=== PATIENT | male | born 1975 | race Caucasian/White ===

== ENCOUNTER 2020-09-28 18:15 | Inpatient (IN) | payer OTHER, SELFPAY ==
--- NOTE | ~2020-09-28 | CT_ITS ---
EXAMINATION: CT abdomen pelvis wo con DATE: 09/29/2020 01:45 INDICATION: Abdomen pain. Vomiting. TECHNIQUE: Computed tomography (CT) of the abdomen and pelvis was performed without intravenous contr ast. The dose-length product was 243.55 mGy-cm. Automated exposure control and iterative reconstructi on technique were employed. COMPARISON: None. FINDINGS: There is right lower lobe atelectasis/scarring. Heart size normal. No significant pleural o r pericardial effusion. There is severe atrophy of the [place] kidneys. There is a right iliac fossa r enal transplant. No hydronephrosis. Surgical anastomosis and bowel of the right mid abdomen. Bladder is unremarkable. The liver, spleen, pancreas, adrenal glands are unremarkable. Gallbladder is not identified, likely s urgically absent. No abnormal pelvic masses or fluid collections. No acute osseous abnormality. There are small ventral hernias containing fat. IMPRESSION: 1. Right lower lobe atelectasis/scarring. 2: Atrophic [place] kidneys with transplant kidney in the right iliac fossa. No hydronephrosis. Reviewed, dictated and finalized at location A. DING CONSTRUCTION SUPERINTENDENT
--- NOTE | ~2020-09-28 | XR_ITS ---
EXAMINATION: XR abdomen obstructive series EXAM DATE: 09/28/2020 22:11 INDICATION: N/V, h/o cyclic vomiting, kidney/pancreas transplant, CKD. TECHNIQUE: Frontal upright projection of the upper abdomen, frontal projection of the lower abdomen f or interpretation. There is no prior study for comparison. FINDINGS: There is right-sided abdominal bowel anastomosis material. No other device overlying right abdomen. There is expected amount of colonic stool and gas. No small bowel dilation, nonobstructiv e bowel gas pattern. There are no suspicious calcifications identified. There is no organomegaly suspected. The bones are unremarkable. There is no free intraperitoneal air. The lung bases are clear. IMPRESSION: Unremarkable abdomen x-ray exam. Reviewed, dictated and finalized at location G. ESS VALIDATION ENGINEER
[2020-09-28 18:15] VITALS: BP 175/94; PULSE 102; RESP 24; TEMP 37.4; O2SAT 98; BMI 22.1
[2020-09-28 18:44] VITALS: BP 175/94; PULSE 102; RESP 24; TEMP 37.4; O2SAT 98
--- NOTE | 2020-09-28 19:03 | ADMGEN ---
This patient, Frandy Chavez, was admitted to 2nd Floor Room 210-2. Patient/family oriented to hospital policies and general routines including ID bracelet, bed and alarms, visiting hours, pain management, procedures, bathroom and other care routines, personal items, smoking policy, room service/diet, and visiting hours. Information on how to activate the Rapid Response Team has been discussed. Patient/Family are encouraged to report perceived risks to care and to ask questions if they do not understand what they are told or what they should do. Patient arrived to floor via ambulance at 1815. Patient ambulated from stretcher to bed. Alert and orientated x4. Patient voided 800 in urinal. States pain in stomach is 9/10. Wants dilauded for pain. No orders yet. Right upper chest port accessed. Left arm shunt, good. Incision well approximated, intact.
[2020-09-28 20:24] LABS: SARS-CoV-2 Ag Negative (Negative)
[2020-09-28 20:33] VITALS: BP 152/103; PULSE 88; RESP 18; TEMP 37.2; O2SAT 98
[2020-09-28 21:05] LABS: Anion Gap 6 mmol/L (8-16); Blood Urea Nitrogen 20 mg/dL (7-18); Calcium 8.5 mg/dL (8.5-10.1); Carbon Dioxide 28 mmol/L (21-32); Chloride 102 mmol/L (98-108); Estimated CRCL calculation 33 ml/min; Estimated Glomerular Filt Rate 27; Glucose 150 mg/dL (70-99); Magnesium 1.9 mg/dL (1.8-2.4); Osmolality Calculated 287 mOsm/kg (285-295); Potassium 3.6 mmol/L (3.5-5.1); Sodium 136 mmol/L (136-145)
[2020-09-28 21:10] LABS: Amphetamine Screen Urine Negative (Negative); Barbiturate Screen Urine Negative (Negative); Benzodiazepines Screen Urine Negative (Negative); Cannabinoid Screen Urine Positive (Negative); Cocaine Screen Urine Negative (Negative); Methadone Screen Urine Negative (Negative); Opiate Screen Urine Positive (Negative); Phencyclidine Screen Urine Negative (Negative)
--- NOTE | 2020-09-28 21:20 | PM.IMHP ---
H&P: HPI History of Present Illness Date/Time: 09/28/201914 Chief Complaint: Vomiting Narrative: 45-year-old man with a history of type 2 diabetes, gastroschisis, pancreas kidney transplant 2008 and cyclic vomiting syndrome transferred from [facility] for inpatient through treatment of his persistent vomiting. Patient began having vomiting on 09/22 and has been unable to keep down medicines and adequate fluid since. Patient states that he has been to multiple emergency departments there he gets fluids and medications however he has not had any relief. Patient states he has also been having epigastric pain which is not unusual for him during his episodes. He states his vomiting episodes have recurred and is little as a month but he has also had intervals of 1 year where he had no symptoms. He denies having fever, cough, shortness of breath, chest pain, back pain, dysuria, hematuria, blood in his stools or melena. He states there is occasionally some blood in his vomitus as there was a small amount today. He states that he is a sometimes marijuana smoker but has not smoked for 3 weeks. He states he has been able to keep down his immunosuppressant medications, tacrolimus and prednisone. Review of Systems Constitutional: Constitutional: Denies body ache(s), Denies chills, Denies fatigue, Denies fever(s), Denies headache(s) and Reports weakness Eyes: Eyes: Denies blurry vision and Denies diplopia ENT: Denies otalgia, Denies nasal congestion, Denies odynophagia, Reports sore throat ( After vomiting) and Denies throat swelling Cardiovascular: Cardiovascular: Denies chest pain and Denies edema Respiratory: Respiratory: Denies cough, Denies hemoptysis and Denies dyspnea Gastrointestinal: Gastrointestinal: Reports abdominal pain, Denies melena, Denies hematochezia, Denies coffee ground emesis, Denies diarrhea, Reports nausea, Reports vomiting and Reports hematemesis Genitourinary: Genitourinary: Denies hematuria and Denies dysuria Musculoskeletal: Musculoskeletal: Denies back pain, Denies arthralgias and Denies joint swelling Integumentary/Breasts: Skin/Breast: Denies erythema and Denies rash Neurologic: Denies headache(s) and Denies focal weakness Hematologic/Lymphatic: Hematologic/Lymphatic: Denies easy bleeding and Denies easy bruising Allergic/Immunologic: Allergic/Immunologic: Denies urticaria, Denies lip swelling and Denies throat swelling PMFSH Past Medical History Medical History Chronic pancreatitis Chronic renal failure Cyclic vomiting syndrome Gastroparesis due to DM Hypertension Presence of arteriovenous dialysis shunt Type 1 diabetes mellitus Surgical History Surgical History H/O skin graft History of simultaneous kidney and pancreas transplant Renal transplant recipient Social History Social History Smoking status: Former smoker Tobacco type: cigarettes Alcohol intake: never Substance use: current Substance use type: marijuana Living arrangements: with family Gender identity (if verbalized by the patient): Male Sexual Orientation (if Verbalized by the Patient): Straight or Heterosexual Spiritual care concerns: No Meds Home Medications and Allergies Home Medications Medication Instructions Recorded Confirmed Type aspirin [Aspirin Low-Strength] 81 mg PO DAILY 09/28/20 09/28/20 History carvedilol 6.25 mg PO BID 09/28/20 09/28/20 History cholecalciferol (vitamin D3) 1,000 units BYMOUTH DAILY 09/28/20 09/28/20 History hydrocodone-acetaminophen 1 tablet PO Q6H PRN 09/28/20 09/28/20 History insulin aspart U-100 [Novolog 100 unit SUBCUT DAILY 09/28/20 09/28/20 History U-100 Insulin aspart] insulin lispro See Rx Instructions .ROUTE .COMPLEX 09/28/20 09/28/20 History metoclopramide HCl 10 mg PO QID
[2020-09-28] MEDS: DEXTROSE 5%/0.9% SOD CHL 1,000 ML 125 ML IV CONT (21:21)
[2020-09-28] MEDS: HYDROmorphone HCL INJ (*CRX) 2 MG/ML VIAL 0.5 MG IV PUSH (21:26)
[2020-09-28] MEDS: PANTOPRAZOLE SODIUM IV 40 MG VIAL IV PUSH (21:29)
[2020-09-28] MEDS: METOCLOPRAMIDE HCL INJ 10 MG/2 ML VIAL IV PUSH (21:47)
[2020-09-28 22:00] VITALS: BP 152/103; PULSE 88; RESP 20; TEMP 37.2; O2SAT 98
--- NOTE | 2020-09-28 22:07 | PC.NURSE ---
dr called at pt's request (after returning from obstructive series in xray) to ask for advancing dose of dilaudid, pt states the stuff we are giving him is not touching his pain, dr declines at this time because pt has only received one dose and will reevaluate after second dose
--- NOTE | 2020-09-28 22:19 | PC.NURSE ---
pt is unhappy, requests dr come up to speak to him, agrees and will be up when available
--- NOTE | 2020-09-28 22:30 | PC.NURSE ---
pt calls asking for tacrolimus medication, medication is not on mar, will consult with
--- NOTE | 2020-09-28 22:38 | PC.NURSE ---
pt requests amfany papers, dr valera and will be up to speak with him once he receives a callback from [facility]
--- NOTE | 2020-09-28 22:42 | PC.NURSE ---
Patient has a history of kidney and pancreas transplant 2008. Patient states he has a long history of gastroparesis and has seen multiple physicians for this condition. Patient states his pain level is a 9/10. Dilaudid IV given.
--- NOTE | 2020-09-28 22:55 | PC.NURSE ---
dr sapp is in room to speak with pt
--- NOTE | 2020-09-28 23:46 | PC.NURSE ---
2310-Patient called requesting his home medication. Explained to patient Dr was coming up to speak with him regarding medication and pt signing himself out. Pt extremely angry and verbally abusing, cursing at nurse. Attempted to calm patient explaining our understanding of his frustration but needing orders before nursing could give him anything. Pt then ordered nurse to leave his room.
--- NOTE | 2020-09-28 23:48 | PC.NURSE ---
8097- Dr. Pugh here speaking with patient. New orders recieved and noted.
--- NOTE | 2020-09-28 23:49 | PC.NURSE ---
Home med of Tacrolimus 2 mg given as ordered per Dr. Pugh. Pt continues to be verbally abusive regarding care and hospital in general.
--- NOTE | 2020-09-29 00:29 | PC.NURSE ---
[facility] called to clarify medication orders.
[2020-09-29] MEDS: HYDROmorphone HCL INJ (*CRX) 2 MG/ML VIAL 0.5 MG IV PUSH ×2 (00:38→01:39)
--- NOTE | 2020-09-29 00:39 | PC.NURSE ---
Dr. Pugh called to clarify medication orders; New orders received and noted.
[2020-09-29 00:40] VITALS: PULSE 84
[2020-09-29] MEDS: carvediloL 6.25 MG TABLET PO ×2 (00:40→10:10)
--- NOTE | 2020-09-29 00:57 | PC.NURSE ---
0030-Pt calmer at present. States Still having pain. Pain medication given as ordered. Remain dis satisfied with dose of medication. Notified.
--- NOTE | 2020-09-29 01:56 | PC.NURSE ---
0130- To CT scan per w/c
[2020-09-29] MEDS: HYDROmorphone HCL INJ (*CRX) 2 MG/ML VIAL 1 MG IV PUSH ×3 (03:33→10:12)
[2020-09-29] MEDS: METOCLOPRAMIDE HCL INJ 10 MG/2 ML VIAL IV PUSH (03:42)
[2020-09-29] MEDS: DEXTROSE 5%/0.9% SOD CHL 1,000 ML 125 ML IV CONT (05:06)
[2020-09-29 05:18] VITALS: BP 172/86; PULSE 96; RESP 24; TEMP 37.2; O2SAT 99
[2020-09-29 05:40] LABS: Basophils Absolute Auto 0.06 K/mm3 (0.00-0.10); Basophils Percent Auto 0.8 % (0.0-1.0); Eosinophils Absolute Auto 0.28 K/mm3 (0.02-0.50); Eosinophils Percent Auto 3.6 % (1.0-6.0); Hematocrit 28.7 % (40.0-54.0); Hemoglobin 9.6 g/dL (14.0-18.0); Immature Granulocyte Absolute 0.05 K/mm3 (0.00-0.00); Immature Granulocyte Percent A 0.6 % (0.0-0.0); Lymphocytes Absolute Auto 2.19 K/mm3 (1.10-4.50); Lymphocytes Percent Auto 28.4 % (18.0-42.0); Mean Corpuscular HGB Conc 33.4 g/dL (32.0-36.0); Mean Corpuscular Hemoglobin 30.3 pg (27.0-31.0); Mean Corpuscular Volume 90.5 fL (78.0-102.0); Monocytes Percent Auto 10.4 % (2.0-11.0); Neutrophils Absolute Auto 4.3 K/mm3 (1.7-7.2); Neutrophils Percent Auto 56.2 % (50.0-70.0); Platelet Count Result 278 K/mm3 (150-420); Red Blood Count 3.17 M/mm3 (4.70-6.10); Red Cell Distribution Width 12.4 % (11.6-14.4); White Blood Count 7.7 K/mm3 (4.8-10.8)
[2020-09-29 05:59] LABS: Alanine Aminotransferase 10 U/L (16-63); Albumin Level 2.8 g/dL (3.4-5.0); Alkaline Phosphatase 52 U/L (46-116); Anion Gap 6 mmol/L (8-16); Aspartate Amino Transferase 14 U/L (15-37); Bilirubin,Total 0.4 mg/dL (0.00-1.00); Blood Urea Nitrogen 16 mg/dL (7-18); Calcium 8.3 mg/dL (8.5-10.1); Carbon Dioxide 28 mmol/L (21-32); Chloride 103 mmol/L (98-108); Estimated CRCL calculation 33 ml/min; Estimated Glomerular Filt Rate 27; Glucose 120 mg/dL (70-99); Magnesium 1.7 mg/dL (1.8-2.4); Osmolality Calculated 286 mOsm/kg (285-295); Potassium 3.1 mmol/L (3.5-5.1); Sodium 137 mmol/L (136-145); Total Protein 5.7 g/dL (6.4-8.2)
[2020-09-29 06:05] LABS: Hemoglobin A1C 7.4 % (<5.7)
[2020-09-29 06:07] LABS: Acetone Negative (Negative)
[2020-09-29 08:21] VITALS: BP 165/97; PULSE 85; RESP 18; TEMP 36.7; O2SAT 95
--- NOTE | 2020-09-29 09:30 | PC.NURSE ---
Hospitalist speaking with patients primary care doctor Dr Scruggs
--- NOTE | 2020-09-29 09:55 | PM.IMHP ---
H&P: HPI History of Present Illness Date/Time: 09/29/20 09:55 Narrative: Frandy Chavez is a 45 year old male who is a direct admit from an outside hospital for abdominal pain and cyclic vomiting syndrome. I was able to talk with his primary care provider, Dr. Scruggs, who informed me that this patient also has very bad gastroparesis, chronic pancreatitis, and goes to a clinic every other day to get 500 cc normal saline for dehydration. Patient has also had renal transplants, type 1 diabetes with insulin pump, hypertension, recently placed dialysis shunt left arm. Patient has been going through abdominal issues for least the past [address] Scruggs. And from that conversation my understanding is patient uses marijuana for his nausea. At this time patient states his pain is epigastric without radiation. His pain has been difficult to control. Review of Systems Constitutional: Constitutional: Denies fever(s) and Reports poor appetite (unable to eat d/t N/V) Cardiovascular: Cardiovascular: Denies chest pain, Denies chest pain at rest and Denies chest pain with activity Respiratory: Respiratory: Denies dyspnea and Denies dyspnea on exertion Gastrointestinal: Gastrointestinal: Reports abdominal pain (epigastric) and Reports nausea PMFSH Past Medical History Medical History (Updated 09/29/20 @ 10:29 by ROMINA Parnell) Chronic pancreatitis Chronic renal failure Cyclic vomiting syndrome Gastroparesis due to DM Hypertension Presence of arteriovenous dialysis shunt Type 1 diabetes mellitus Surgical History Surgical History H/O skin graft History of simultaneous kidney and pancreas transplant Renal transplant recipient Social History Social History Smoking status: Former smoker Tobacco type: cigarettes Alcohol intake: never Substance use: current Substance use type: marijuana Living arrangements: with family Gender identity (if verbalized by the patient): Male Sexual Orientation (if Verbalized by the Patient): Straight or Heterosexual Spiritual care concerns: No Meds Home Medications and Allergies Home Medications Medication Instructions Recorded Confirmed Type aspirin [Aspirin Low-Strength] 81 mg PO DAILY 09/28/20 09/28/20 History carvedilol 6.25 mg PO BID 09/28/20 09/28/20 History cholecalciferol (vitamin D3) 1,000 units BYMOUTH DAILY 09/28/20 09/28/20 History hydrocodone-acetaminophen 1 tablet PO Q6H PRN 09/28/20 09/28/20 History insulin aspart U-100 [Novolog 100 unit SUBCUT DAILY 09/28/20 09/28/20 History U-100 Insulin aspart] insulin lispro See Rx Instructions .ROUTE .COMPLEX 09/28/20 09/28/20 History metoclopramide HCl 10 mg PO QID 09/28/20 09/28/20 History omeprazole 20 mg PO BID 09/28/20 09/28/20 History ondansetron 4 mg Q8H PRN 09/28/20 09/28/20 History prednisone 5 mg PO DAILY 09/28/20 09/28/20 History promethazine 25 mg IM PRN PRN 09/28/20 09/28/20 History tacrolimus 2 mg PO BID 09/28/20 09/28/20 History Allergies Allergy/AdvReac Type Severity Reaction Status Date / Time fentanyl Allergy Unknown Unknown Verified 09/28/20 20:43 haloperidol [From Haldol] Allergy Unknown Unknown Verified 09/28/20 20:43 ibuprofen Allergy Unknown Unknown Verified 09/28/20 20:43 ketorolac [From Toradol] Allergy Unknown Unknown Verified 09/28/20 20:43 metformin Allergy Unknown Unknown Verified 09/28/20 20:43 morphine Allergy Unknown Unknown Verified 09/28/20 20:43 prochlorperazine Allergy Unknown Unknown Verified 09/28/20 20:43 [From Compazine] Vital Signs Vital Signs - 24 hr 09/28/20 18:15 09/28/20 18:44 09/28/20 20:33 Temperature 99.3 F 99.3 F 99.0 F Pulse Rate 102 H 102 H 88 Respiratory Rate 24 H 24 H 18 Blood Pressure 175/94 H 175/94 H 152/103 H Pulse Oximetry 98 98 98 09/28/20 22:00 09/29/20 00:40 09/29/20 05:18 Temperature 99.0 F 99 F Puls
[2020-09-29] MEDS: CHOLECALCIFEROL 1,000 UNITS TABLET 1000 UNITS PO (10:09)
[2020-09-29 10:10] VITALS: PULSE 85
[2020-09-29] MEDS: predniSONE 5 MG TABLET PO (10:10)
[2020-09-29] MEDS: ASPIRIN 81 MG CHEWABLE TABLET PO (10:10)
[2020-09-29] MEDS: PROMETHAZINE HCL 25 MG/ML AMPUL IM (10:11)
[2020-09-29] MEDS: PANTOPRAZOLE SODIUM IV 40 MG VIAL IV PUSH (10:14)
[2020-09-29] MEDS: ENOXAPARIN 30 MG/0.3 ML SYRINGE SUB-Q (10:30)
--- NOTE | 2020-09-29 10:35 | PC.NURSE ---
Patient given 2 Tacrolimus 1mg capsules from home bottle. Patient states that the bottle states to take 3 but he only takes 2.
--- NOTE | 2020-09-29 10:46 | PM.IMPN ---
Progress Note: A&P Assessment and Plan (1) Gastroparesis due to DM: Code(s): E11.43 - Type 2 diabetes mellitus with diabetic autonomic (poly)neuropathy; K31.84 - Gastroparesis Status: Acute Assessment and Plan: 09/29/2020 IV Reglan, Pain management as outlined below, monitoring glucose (2) Abdominal pain: Code(s): R10.9 - Unspecified abdominal pain Status: Acute Assessment and Plan: 09/29/2020 likely due to chronic pancreatitis, cyclic vomiting, and severe gastroparesis, pain management with Dilaudid 1 mg Q2 hours as needed, offered patient PO OxyContin which he refused, IV fluids D5 normal saline, Reglan 10 mg scheduled 3 times a day (3) Chronic renal failure: Code(s): N18.9 - Chronic kidney disease, unspecified Status: Acute Assessment and Plan: 09/29/2020 patient has a left dialysis fistula placement in the recent past and per the patient this was in anticipation of starting dialysis given his kidney function (4) Cyclic vomiting syndrome: Code(s): R11.15 - Cyclical vomiting syndrome unrelated to migraine Status: Acute Assessment and Plan: 09/29/2020 Reglan as noted above, Zofran, IV fluids, clear liquids as tolerated (5) Hypertension: Code(s): I10 - Essential (primary) hypertension Status: Acute Assessment and Plan: 09/29/2020 hypertension likely due to chronic renal failure and abdominal pain, continue Coreg (6) Type 1 diabetes mellitus: Code(s): E10.9 - Type 1 diabetes mellitus without complications Status: Acute Assessment and Plan: 09/29/2020 patient has insulin pump in place, ACHS Accu-Cheks, patient not eating but does have IV fluids with D5 normal saline and clear liquid diet when patient is able to tolerate (7) Person under investigation for COVID-19: Code(s): Z20.822 - Contact with and (suspected) exposure to COVID-19 Status: Acute Assessment and Plan: 09/29/2020 rapid COVID was negative awaiting SARs COVID results, patient does not have any symptoms at this time Subjective Date/time seen: 09/29/20 10:46 Frandy Chavez is a 45 year old male who is a direct admit from an outside hospital for abdominal pain and cyclic vomiting syndrome. I was able to talk with his primary care provider, Dr. cSruggs, who informed me that this patient also has very bad gastroparesis, chronic pancreatitis, and goes to a clinic every other day to get 500 cc normal saline for dehydration. Patient has also had renal transplants, type 1 diabetes with insulin pump, hypertension, recently placed dialysis shunt left arm. Patient has been going through abdominal issues for least the past [address] Scruggs. And from that conversation my understanding is patient uses marijuana for his nausea. At this time patient states his pain is epigastric without radiation. His pain has been difficult to control. Patient refuses oral medication likely due to his epigastric pain. Review of Systems Constitutional: Constitutional: Denies fever(s) and Reports poor appetite (unable to eat d/t N/V) Cardiovascular: Cardiovascular: Denies chest pain, Denies chest pain at rest, Denies chest pain with activity, Denies dyspnea and Denies dyspnea on exertion Respiratory: Respiratory: Denies dyspnea and Denies dyspnea on exertion Gastrointestinal: Gastrointestinal: Reports abdominal pain (epigastric) and Reports nausea Exam Const: General: alert, awake, Physically active and other (Belligerent with regards to pain medication/pain control) Nutritional Appearance: average body habitus Resp: Effort & Inspection: normal respiratory effort Auscultation: clear to auscultation bilaterally Cardio: Rate: regular rate Rhythm: regular rhythm Heart sounds: S1 normal heart sound present and S2 normal heart sound present GI: Inspection: other (RLQ Insulin Pump) Auscultation: Hypoactive bowel sounds present Extrem: General: no pedal madie
--- NOTE | 2020-09-29 11:52 | PC.NURSE ---
0800 pat in bed. answers questions and is drowsy sounding. claims pain is never gone away even after pain meds, never ever below 10. denies any vomiting since here but does have nausea. claims free style blood sugar 136. 0830 pt is up set upon entering room. claims we tx him worse than fucking shidominique . We refuse to help him. Claims no one knows their head from their ass. We refuse to give him anything for pain or n/v since 2100. tried to explain he rec'd last dose of pain med and n/v but was told to shut the fuck up and get someone else in here. 0930 global sourcing manager has been into see him. he was told to get the fuck out and never return. nurse mobile manager and erp were in to see him. meds were changed to closer frequency and now claims he will remain in our care. 1015 pt has been given meds for n/v and pain. see mar. up ad mariajose in room after port flushed. showers self. mood is better. still claims pain is 10/10. 1100 rests quietly in bed. ivf back on port has immediate return of blood. pleasant claims blood sugar per his free style is 118. back in bed. still has nausea and no vomiting and claims slightly better but still a 10/10. 1130 density control puncher light cursing at staff that his nurse needs down there and he is sick of this shitty place and he is leaving now. 1145 AMA papers are taken to him. asked what happened. claims no one is ever going to call him a AutoeBid liar , and how dare our BLADDER CLEANER do this. We are so low on the [email or web address] chain and should never be called a hospital. pt up in room pulling port access. Claims there is no way in fucking hell he will sign any AMA paperwork and I can not make him. trying to claim him down, keeps hollering at me. density control puncher light and asking for port flush and this financial underwriter to get nurse mobile manager at least to door. pt asked why do I need her here. explained that the way he is talking to me and getting in my face and refusing to sit down is not something I have to tolerate. nurse manger at door and patient now sitting down and voice calm. but still claims he will not sign paperwork and shit slides down hill. port flushed and de accessed. explained need to wear face covering to leave room. 1200 patient has eloped at this time. home med was given back to him, tacrolimus.
--- NOTE | 2020-09-29 13:05 | PM.DS ---
DS: Admitting Diagnosis Admitting Diagnosis Admitting Diagnosis: Abdominal pain Frandy Chavez is a 45 year old male who is a direct admit from an outside hospital for abdominal pain and cyclic vomiting syndrome. I was able to talk with his primary care provider, Dr. Scruggs, who informed me that this patient also has very bad gastroparesis, chronic pancreatitis, and goes to a clinic every other day to get 500 cc normal saline for dehydration. Patient has also had renal transplants, type 1 diabetes with insulin pump, hypertension, recently placed dialysis shunt left arm. Patient has been going through abdominal issues for least the past [address] Scruggs. And from that conversation my understanding is patient uses marijuana for his nausea. At this time patient states his pain is epigastric without radiation. His pain has been difficult to control. Patient refuses oral medication likely due to his epigastric pain. <ROMINA Parnell - Last Filed: 09/29/20 13:16> DS: Discharge Diagnosis Discharge Diagnosis (1) Gastroparesis due to DM: Code(s): E11.43 - Type 2 diabetes mellitus with diabetic autonomic (poly)neuropathy; K31.84 - Gastroparesis <ROMINA Parnell - Last Filed: 09/29/20 13:16> Status: Acute <ROMINA Parnell - Last Filed: 09/29/20 13:16> Assessment and Plan: 09/29/2020 IV Reglan, Pain management as outlined below, monitoring glucose <ROMINA Parnell - Last Filed: 09/29/20 13:16> (2) Abdominal pain: Code(s): R10.9 - Unspecified abdominal pain <ROMINA Parnell - Last Filed: 09/29/20 13:16> Status: Acute <ROMINA Parnell - Last Filed: 09/29/20 13:16> Assessment and Plan: 09/29/2020 likely due to chronic pancreatitis, cyclic vomiting, and severe gastroparesis, pain management with Dilaudid 1 mg Q2 hours as needed, offered patient PO OxyContin which he refused, IV fluids D5 normal saline, Reglan 10 mg scheduled 3 times a day <ROMINA Parnell - Last Filed: 09/29/20 13:16> (3) Chronic renal failure: Code(s): N18.9 - Chronic kidney disease, unspecified <Michael Vail APN-C - Last Filed: 09/29/20 13:16> Status: Acute <DEB ParnellN-C - Last Filed: 09/29/20 13:16> Assessment and Plan: 09/29/2020 patient has a left dialysis fistula placement in the recent past and per the patient this was in anticipation of starting dialysis given his kidney function <DEB ParnellN-C - Last Filed: 09/29/20 13:16> (4) Cyclic vomiting syndrome: Code(s): R11.15 - Cyclical vomiting syndrome unrelated to migraine <Michael Vail TAXI DRIVER SUPERVISOR-C - Last Filed: 09/29/20 13:16> Status: Acute <Michael Vail APN-C - Last Filed: 09/29/20 13:16> Assessment and Plan: 09/29/2020 Reglan as noted above, Zofran, IV fluids, clear liquids as tolerated <Michael Vail TAXI DRIVER SUPERVISOR-C - Last Filed: 09/29/20 13:16> (5) Hypertension: Code(s): I10 - Essential (primary) hypertension <Michael Vail APN-C - Last Filed: 09/29/20 13:16> Status: Acute <Michael Vail APN-C - Last Filed: 09/29/20 13:16> Assessment and Plan: 09/29/2020 hypertension likely due to chronic renal failure and abdominal pain, continue Coreg <Michael Vail TAXI DRIVER SUPERVISOR-C - Last Filed: 09/29/20 13:16> (6) Type 1 diabetes mellitus: Code(s): E10.9 - Type 1 diabetes mellitus without complications <Michael Vail TAXI DRIVER SUPERVISOR-C - Last Filed: 09/29/20 13:16> Status: Acute <Michael Vail TAXI DRIVER SUPERVISOR-C - Last Filed: 09/29/20 13:16> Assessment and Plan: 09/29/2020 patient has insulin pump in place, ACHS Accu-Cheks, patient not eating but does have IV fluids with D5 normal saline and clear liquid diet when patient is able to tolerate <Michael Rupal Vail APN-Robson - Last Filed: 09/29/20 13:16> (7) Person under investigation for COVID-19: Code(s): Z
[2020-09-30 19:23] LABS: SARS-CoV-2 RNA PCR Negative
[2020-10-05 05:28] LABS: Prealbumin 15 mg/dL (21-43)
== END 2020-09-29 12:00 | disposition left against medical advice (07) | DRG 48 ==
PROVIDERS: Admitting Provider Emergency Medicine; PCP Family Medicine; Visit Provider Emergency Medicine
DX: E10.43 Type 1 diabetes mellitus with diabetic autonomic (poly)neuropathy (principal); K31.84 Gastroparesis; E10.22 Type 1 diabetes mellitus with diabetic chronic kidney disease; I12.9 Hypertensive chronic kidney disease with stage 1 through stage 4 chronic kidney disease, or unspecified chronic kidney disease; N18.9 Chronic kidney disease, unspecified; R11.15 Cyclical vomiting syndrome unrelated to migraine; F12.90 Cannabis use, unspecified, uncomplicated; Z20.828 Contact with and (suspected) exposure to other viral communicable diseases; Z96.41 Presence of insulin pump (external) (internal); Z94.83 Pancreas transplant status; Z94.0 Kidney transplant status
CPT/HCPCS: 36415; 74019; 74176; 80048; 80053; 80307; 82010; 83036; 83735; 84134; 85025; 87426; A9270; C9113; C9803; J1170; J1650; J2550; J2765; J7042; J7512; U0003